=== PATIENT | male | born 1990 | race Caucasian/White ===

== ENCOUNTER 2017-07-28 18:49 | Emergency (ER) | payer SELFPAY ==
[2017-07-28 19:07] VITALS: O2SAT 98
[2017-07-28] MEDS ORDERED: SODIUM CHLORIDE 0.9% 1000ML 1,000 ML IVS ONE (19:24)
[2017-07-28] MEDS ORDERED: KETOROLAC TROMETHAMINE INJ 30 MG/ML VIAL IV ONE (19:24)
--- NOTE | 2017-07-28 20:10 | CT ---
PROCEDURE: Abdoment/Pelvis w/o Contrast HISTORY: Bilateral flank pain, r/o kidney stones Indication: Same as above Comparison: None Technique: CT of the abdomen and pelvis was done without intravenous contrast. Images were obtained from the lung base to the level of the pubic symphysis in axial plane, followed by orthogonal sagittal and coronal reconstruction. Oral contrast was not given for the study. This exam was performed according to our departmental dose-optimization program, which includes automated exposure control, adjustment of the mA and/or KV according to the patient's size and/or use of iterative reconstruction technique. FINDINGS: Images through the lung bases do not show any focal infiltrates or pleural effusions. The liver, gallbladder, pancreas, spleen and the bilateral adrenal glands appear unremarkable, given the limitation of lack of intravenous contrast. The bilateral kidneys do not show any evidence of hydronephrosis or nephrolithiasis. The bilateral ureters and the bilateral periureteral soft tissues and fat planes are unremarkable. The urinary bladder is unremarkable, without any evidence of wall thickening, calculi or filling defects. The small bowel appears unremarkable, without any evidence of small bowel obstruction or bowel wall thickening. There is no CT evidence of acute appendicitis, pericecal inflammatory change or ileocecal mesenteric adenitis. The ileocecal junction appears unremarkable. There is no CT evidence of acute colonic diverticulitis or colitis or large bowel obstruction. There is mild constipation There is no pathological lymphadenopathy in the retroperitoneum or in the pelvic region. There is no evidence of free fluid or free air in the abdomen or the pelvic region. There is no clinically significant abdominal aortic aneurysm. There is no clinically significant inguinal or ventral hernia. The visualized lumbar spine is unremarkable. The paravertebral soft tissues are unremarkable. The remainder of the pelvic structures are unremarkable. IMPRESSION: There are no acute findings on the current study. There is presence of mild constipation. There is no CT evidence of urinary tract calculi or urinary tract obstruction Electronically signed by: John Louie MD 07/28/2017 8:09 PM CDT Workstation: [id number]
--- NOTE | 2017-07-28 20:15 | ED.PDOC ---
History of Present Illness - General Chief Complaint: Back Pain or Injury Stated Complaint: low back pain, cough Time Seen by Provider: 07/28/17 19:06 Source: patient, RN notes reviewed, Vital Signs reviewed Exam Limitations: no limitations - History of Present Illness Initial Comments: Patient comes to ER with c/o of his kidneys hurting since yesterday. He describes a stabbing pain like lots of needles bilaterally. Unsure about urinary symptoms but does say it hurts when he first starts to urinate. No fever or chills. No chest pain or SOB. No nausea/vomiting or change in bowel habits. Timing/Duration: 24 hours Quality/Severity: moderate Back Pain Location: paraspinous muscles Back Pain Radiation: other - None Method of Injury/Prior Injury: unknown Improving Factors: nothing Worsening Factors: nothing Associated Symptoms: denies symptoms Allergies/Adverse Reactions: Allergies NO KNOWN ALLERGY Allergy (Verified 07/28/17 19:07) Home Medications: Ambulatory Orders Cyclobenzaprine HCl [Flexeril] 10 mg PO QPM PRN #15 tab 07/28/17 Ibuprofen 800 mg PO TID PRN #30 tab 07/28/17 Review of Systems - Review of Systems Constitutional: States: no symptoms reported. Denies: chills, fever, malaise EENTM: States: no symptoms reported Respiratory: States: cough. Denies: short of breath Cardiology: States: no symptoms reported. Denies: chest pain Gastrointestinal/Abdominal: States: no symptoms reported. Denies: abdominal pain, diarrhea, nausea, vomiting Genitourinary: States: see HPI Musculoskeletal: States: back pain Skin: States: no symptoms reported Neurological: States: no symptoms reported All other Systems: No Change from Baseline Past Medical History (General) - Patient Medical History Hx Asthma: No Hx Cardiac Disorders: No Hx Diabetes: No Hx Gastroesophageal Reflux: No Surgical History: other - Vaccination History Hx Tetanus, Diphtheria Vaccination: No Hx Influenza Vaccination: No Hx Pneumococcal Vaccination: No - Social History Hx Tobacco Use: Yes Hx Alcohol Use: Yes Hx Substance Use: Yes Family Medical History - Family History Mother Hx Cardiac Disease: Yes Physical Exam - Physical Exam General Appearance: Alert, Comfortable, No apparent distress, Well Developed, Well Groomed, Well Hydrated, Well Nourished Neck Exam: normal alignment, normal inspection Cardiovascular/Respiratory: regular rate, rhythm, no M/R/G, normal breath sounds , no respiratory distress Gastrointestinal/Abdominal: normal bowel sounds, non tender, soft, no organomegaly Back Exam: no vertebral tenderness, CVA tenderness (R), CVA tenderness (L), muscle spasm Extremity Exam: no evidence of injury, normal range of motion Neurologic: alert, normal mood/affect, oriented x 3 Skin Exam: normal color, warm/dry Comments: Vital Signs 07/28/17 19:02 Temperature 98.2 F Pulse Rate [ 110 H left] Respiratory 20 Rate Blood Pressure 119/80 [lefrt] O2 Sat by Pulse 98 Oximetry Progress - Progress Progress: 07/28/17 20:[address] scan Most likely musculoskeletal pain given his work in the [employer]. Will d/c home on muscle relaxer and Ibuprofen - Results/Orders Results/Orders: Laboratory Tests 07/28/17 07/28/17 07/28/17 19:40 19:40 20:20 WBC 7.4 RBC 4.67 L Hgb 14.0 Hct 41.8 L MCV 89.4 MCH 29.9 MCHC 33.6 RDW 13.2 Plt Count 178 MPV 8.3 Absolute Neuts (auto) 4.70 Absolute Lymphs (auto) 1.50 Absolute Monos (auto) 1.10 H Absolute Eos (auto) 0.10 Absolute Basos (auto) 0.00 Neutrophils % 63.5 Lymphocytes % 20.4 Monocytes % 14.2 H Eosinophils % 1.3 Basophils % 0.6 Sodium 138 Potassium 3.8 Chloride 102 Carbon Dioxide 30 Anion Gap 9.8 L BUN 10 Creatinine 0.95 BUN/Creatinine Ratio 10.5 Random Glucose 74 Serum Osmolality 273.4 L Calcium 8.6 Total Bilirubin 0.2 AST 15 ALT 21 Alkaline Phosphatase 86 Serum Total Protein 6.9 Albumin 3.3 Globulin 3.6 H Albumin/Globulin Ratio 0.9 L Urine Color Yellow Urine Appearance Clear Urine pH 6.0 Ur Specific [place] 1.020 Urine Protein Negative Urine Glucose (UA) Negative Urine Ketones Negative Urine Blood Negative Urine Nitrite Negative Urine Bilirubin Negative Urine Urobilinogen 0.2 Ur Leukocyte Esterase Negative Urine RBC 0 Urine WBC 0 Ur Epithelial Cells 0 Urine Bacteria Rare - EKG/XRAY/CT CT Ordered: Yes - No acute intrabdominal findings except mild constipation per Rad Departure - Departure Clinical Impression: Muscle spasm of back Lumbosacral strain Qualifiers: Encounter type: initial encounter Qualified Code(s): S39.012A - Strain of muscle, fascia and tendon of lower back, initial encounter Time of Disposition: 20:54 Disposition: Discharge to Home or Self Care Condition: Good Departure Forms: ED Discharge - Pt. Copy, Patient Portal Self Enrollment Instructions: DI for Low Back Pain Diet: resume usual diet Activity: increase activity as tolerated Prescriptions: Cyclobenzaprine HCl [Flexeril] 10 mg PO QPM PRN #15 tab PRN Reason: Muscle Spasms Ibuprofen 800 mg PO TID PRN #30 tab PRN Reason: Moderate To Severe Pain Home Medications: Ambulatory Orders Cyclobenzaprine HCl [Flexeril] 10 mg PO QPM PRN #15 tab 07/28/17 Ibuprofen 800 mg PO TID PRN #30 tab 07/28/17
[2017-07-28 20:41] VITALS: BP 121/79; TEMP 97.8
== END 2017-07-28 21:05 | disposition home or self-care (01) ==
LOC: ER 18:49
DX: S39.012A Strain of muscle, fascia and tendon of lower back, initial encounter (principal); M62.830 Muscle spasm of back; Z87.891 Personal history of nicotine dependence
CPT/HCPCS: 36415; 74176; 80053; 81001; 85025; J1885; J7030